=== PATIENT | male | born 1985 | race American Indian/Alaskan Native ===

== ENCOUNTER 2021-10-24 20:58 | Emergency (ER) | payer SELFPAY ==
[2021-10-24 21:26] VITALS: BP 146/86
--- NOTE | 2021-10-25 09:07 | Electrocardiograph Report ---
[facility] Test Date: 2021-10-24 Test Time: 21:27:12 Pat Name: NIKKY WALLACE Department: Room: Gender: M [employer]: CHERELLE : 1985 Requested By: ED DOC Order Number: [id number] Reading MD: Tip Goodwin Measurements Intervals [place] Rate: 111 P: 51 OK: 183 QRS: 49 QRSD: 89 T: 18 QT: 312 QTc: 425 Interpretive Statements Sinus tachycardia Probable left atrial enlargement No previous ECG available for comparison Electronically Signed On 10-25-2021 9:06:50 EDT by Tip Goodwin
== END 2021-10-25 19:00 | disposition left against medical advice (07) ==
LOC: ED 20:58
DX: R07.9 Chest pain, unspecified (principal); Z53.21 Procedure and treatment not carried out due to patient leaving prior to being seen by health care provider
CPT/HCPCS: 93005